=== PATIENT | female | born 1995 | race Caucasian/White ===

== ENCOUNTER 2017-06-02 01:11 | Emergency (ER) | payer OTHER ==
[~2017-06-02] VITALS: Ht 157.5 cm; Wt 65.3 kg
--- NOTE | 2017-06-02 01:11 | NUR ---
Patient being evaluated by physician at triage room.
[2017-06-02 01:12] VITALS: BP 108/77
[2017-06-02] MEDS ORDERED: LIDOCAINE/EPI 1% 1:100000 20 ML VIAL INJ ONE (01:15)
--- NOTE | 2017-06-02 01:20 | NUR ---
[facility] EVALUATING PT IN TRIAGE
--- NOTE | 2017-06-02 01:30 | NUR ---
[facility] PLACED PT ON 5150 HOLD
--- NOTE | 2017-06-02 01:42 | NUR ---
BIB WHEELCHAIR TO ER BED 3 Addendum: 06/02/17 at 0143 by [facility] BIB WHEELCHAIR TO ER BED 3 ACCOMPANIED BY PIOTR MCGINNIS
--- NOTE | 2017-06-02 01:45 | NUR ---
PATIENT PRESENTS TO ED WITH LACERATION TO LEFT WRIST.PATIENT STATES SHE CUT HERSELF AND DOESNT KNOW HOW SHE DID IT. SHE STATES SHE'S SORRY AND SHOULD NOT HAVE DONE IT. PATIENT STATES SHE CUT HER WRIST USING THE SAME UTENSIL SHE USES TO CUT HER EYEBROWS.PATIENT POSITIVE FOR ETOH. PT DENIES N/V/D; SKIN IS PINK/WARM/DRY; AAOX4 WITH EVEN AND STEADY GAIT; LUNGS CLEAR BL; HR EVEN AND REGULAR; PT DENIES ANY FEVER, CP, SOB, OR COUGH AT THIS TIME; PATIENT STATES PAIN OF 9/10 AT THIS TIME; VSS; PATIENT POSITIONED FOR COMFORT; HOB ELEVATED; BEDRAILS UP X2; BED DOWN. ER MD MADE AWARE OF PT STATUS.
[2017-06-02 01:46] LABS: AMPHETAMINE, URINE NEG. ng/ml (NEG <=1000); BARBITURATE, URINE NEG. ng/ml (NEG <=200); BENZODIAZEPINE, URINE NEG. ng/mL (NEG <=200); CANNABINOID, URINE NEG. ng/mL (NEG <=50); COCAINE, URINE NEG. ng/mL (NEG <=300); OPIATE, URINE NEG. ng/mL (NEG <=2000); PHENCYCLIDINE SCREEN,URINE NEG. ng/mL (NEG <=25)
--- NOTE | 2017-06-02 02:15 | NUR ---
MOM CONTACT [phone]
--- NOTE | 2017-06-02 02:15 | NUR ---
BELONGING GIVEN TO FAMILY AT BEDSIDE (MOM MARNI. ) BHAVESH SPOUSE HAS CELL PHONE OF PT
[2017-06-02] MEDS ORDERED: LIDOCAINE/EPI 2% 1:100000 20 ML VIAL INJ ONE ×2 (02:19→02:20)
[2017-06-02 02:23] LABS: BASOPHILS # (AUTO) 0.2 K/uL (0.00-0.22); BASOPHILS % (AUTO) 2.3 % (0.0-2.0); EOSINOPHILS # (AUTO) 0.1 K/uL (0-0.4); EOSINOPHILS % (AUTO) 1.1 % (0.0-4.0); HEMATOCRIT 39.1 % (36-48); HEMOGLOBIN 12.8 g/dL (12.0-16.0); LYMPHOCYTES # (AUTO) 2.7 K/uL (2.5-16.5); LYMPHOCYTES % (AUTO) 26.4 % (20.5-51.1); MEAN CORPUSCULAR HEMOGLOBIN 26 pg (27-31); MEAN CORPUSCULAR HGB CONC 33 g/dL (33-37); MEAN CORPUSCULAR VOLUME 81 fL (80-94); MONOCYTES # (AUTO) 0.4 K/uL (0.8-1.0); MONOCYTES % (AUTO) 4.4 % (1.7-9.3); NEUTROPHILS # (AUTO) 6.8 K/uL (1.8-7.7); NEUTROPHILS % (AUTO) 65.8 % (42.2-75.2); PLATELET COUNT (AUTO) 281 K/uL (140-450); RED BLOOD CELL COUNT(AUTO) 4.83 MIL/uL (4.20-5.40); RED CELL DISTRIBUTION WIDTH 13.3 % (11.6-13.7); WHITE BLOOD COUNT (AUTO) 10.2 K/uL (4.8-10.8)
--- NOTE | 2017-06-02 02:30 | NUR ---
Patient has a laceration to THE LEFT FA. Dr. HILARIO applied sutures using sterile technique. Edges well approximated. No bleeding noted. Pt tolerated well.
[2017-06-02 02:33] LABS: ANION GAP 20.5 (8-16); CALCIUM 8.8 mg/dL (8.5-10.1); CARBON DIOXIDE 18.7 mmol/L (21-32); CHLORIDE 109 mmol/L (98-107); CREATININE 0.6 mg/dL (0.6-1.3); GFR ARICAN-AMERICAN 162 mL/min (>90); GFR NON ARICAN-AMERICAN 134 mL/min (>90); GLUCOSE 110 mg/dL (74-106); POTASSIUM 3.2 mmol/L (3.5-5.1); SODIUM SERUM 145 mmol/L (136-145); UREA NITROGEN, BLOOD 6 mg/dL (7-18)
[2017-06-02 02:40] LABS: ACETAMINOPHEN < 0.5 ug/ml (10-30); ALANINE AMINOTRANSFERASE 19 U/L (14-59); ALBUMIN 4.2 g/dL (3.4-5.0); ALCOHOL, BLOOD 129 mg/dL (<3); ALKALINE PHOSPHATASE 99 U/L (46-116); ASPARTATE AMINOTRANSFERASE 15 U/L (15-37); SALICYLATE < 2.8 mg/dL (2.8-20.0); TOTAL BILIRUBIN 0.2 mg/dL (0.0-1.0); TOTAL PROTEIN, SERUM 7.8 g/dL (6.4-8.2)
[2017-06-02 02:42] LABS: PROTHROMBIN TIME 10.4 secs (10.8-13.4)
[2017-06-02] MEDS ORDERED: POTASSIUM CHLORIDE 10 MEQ TABER PO ONE (02:45)
--- NOTE | 2017-06-02 03:00 | NUR ---
Patient appears to be resting comfortably in bed. Vital Signs within normal limits. Respirations even and unlabored.
[2017-06-02] MEDS ORDERED: BACITRACIN OINT 500 UNITS/GM PKT TP ONE (03:30)
--- NOTE | 2017-06-02 04:00 | NUR ---
Patient IS RESTING IN BED, WITH FAMILY AT THE BEDSIDE. PATIENT IS comfortably in bed. Vital Signs within normal limits. Respirations even and unlabored.
--- NOTE | 2017-06-02 05:00 | NUR ---
Patient IS RESTING IN BED, WITH FAMILY AT THE BEDSIDE. PATIENT IS comfortably in bed. Vital Signs within normal limits. Respirations even and unlabored.
--- NOTE | 2017-06-02 05:36 | NUR ---
Patient appears to be resting comfortably in bed. Vital Signs within normal limits. Respirations even and unlabored.
--- NOTE | 2017-06-02 06:00 | NUR ---
PATIENT IN BED, AWAKE, CALM AND RESTING.
--- NOTE | 2017-06-02 06:59 | NUR ---
PATIENT IN BED, AOX4 CALMLY RESTING. ASKING WHEN SHE WILL BE ABLE TO GO HOME. PATIENT HAS FAMILY AT THE BEDSIDE.
--- NOTE | 2017-06-02 07:17 | NUR ---
Pt report given to CONCEPCI[facility]N HESS . Transfer of care at this time.
--- NOTE | 2017-06-02 07:20 | NUR ---
RECEIVED REPORT AT BEDSIDE. PATIENT RESTING IN BED, SPOUSE AT BEDSIDE. PATIENT DENIES ANY SUICIDAL IDEATION. NO S/S OF ACUTE DISTRESS. DRESSING DRY AND INTACT ON LEFT ARM.
--- NOTE | 2017-06-02 09:25 | NUR ---
REPORT GIVEN TO ARIANNA AT [facility]. PATIENT TO BE TRANSFERRED TO UNIT 300, [facility] OPERATOR 30-40 MINUTES. PATIENT RESTING IN BED. NO S/S OF ACUTE DISTRESS.
[2017-06-02] MEDS ORDERED: KETOROLAC 60 MG/2 ML VIAL IM ONE (10:20)
[2017-06-02 10:40] VITALS: BP 112/59
--- NOTE | 2017-06-02 10:42 | NUR ---
Patient to be transferred to [facility]. Is being transferred due to [facility] 5150. Receiving facility has accepting physician and available space. ER physician has signed transfer form. Patient or responsible democrat has agreed to transfer and signed form. Patient belongings inventoried and will be sent with patient. Copy of nursing notes, lab reports, EKG, Physicians Orders and X-rays to be sent with patient. Report called to [facility] at receiving facility. [facility] ambulance HERE TO TAKE PATIENT.
== END 2017-06-02 10:42 ==
LOC: MED 01:11
DX: S61.512A Laceration without foreign body of left wrist, initial encounter (principal); E87.6 Hypokalemia; X78.1XXA Intentional self-harm by knife, initial encounter; Y93.89 Activity, other specified; Y92.098 Other place in other non-institutional residence as the place of occurrence of the external cause; Y99.8 Other external cause status
CPT/HCPCS: 12002; 36415; 80053; 80305; 81025; 85025; 85610; 96372; 99285; G0480; G0482; J1885; J2001